=== PATIENT | female | born 1930 | race Caucasian/White ===

== ENCOUNTER 2017-09-30 12:03 | Outpatient (CLI) | payer OTHER ==
[2013-02-04 21:05] VITALS: BMI 34.4
--- NOTE | 2017-09-30 15:25 | DI ---
Exam: Two views of the left hip. Comparison: CT abdomen pelvis performed 02/04/2013. Reason for exam: Pain in left hip FINDINGS: No acute fracture or dislocation. The femoral head articulates with the acetabulum. Angelia lar appearing degenerative disease is seen adjacent the greater trochanter. Degenerative disease is seen in the pelvis with sclerotic change and osteophyte formation. 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
== END 2017-09-30 12:04 | disposition home or self-care (01) ==
LOC: RAD 12:03
PROVIDERS: ATTEND Internal Medicine
DX: M25.552 Pain in left hip (principal); W19.XXXA Unspecified fall, initial encounter